=== PATIENT | female | born 1950 | race Caucasian/White ===

== ENCOUNTER → 2024-10-14 | Outpatient (CLI) | payer OTHER, SELFPAY ==
--- NOTE | 2024-10-13 11:30 | LES_PTH ---
PATIENT: DHARA SAPP LOC: [facility] U#:[id number] AGE/SX: 73/F ROOM: RE10/14/[address]: Dr. Braulio Suero MD : 1950 BED: DIS: 10/14/2024 SPEC #: [id number] RECD: 10/13/24 17:00 STATUS: MARZENA CRYSTAL #: [id number] MAXX: 10/13/24 11:[address]: Braulio Suero DEPT: SURGICAL PATHOLOGY RECD BY: Gopi Ramsey ENTERED: 10/14/24 10:17 SP TYPE: Lesion OTHR DR: No Primary Care Phys Tissues: A - Skin of eyelid, NOS Procedures: Surgery Specimen Level IV HEADER OPERATION: Excision of multiple (3) skin tags PRE-OP DIAGNOSIS: Left lower, upper lids TISSUE SUBMITTED: A- Left upper, lower lid MICROSCOPIC DIAGNOSIS A. Skin, eyelid, left, upper and lower, excision: - Pedunculated seborrheic keratosis (3 fragments). MICROSCOPIC DESCRIPTION Slides are reviewed. GROSS DESCRIPTION A. Received in formalin labeled with the patient's name and date of are 3 finney skin fragments, 0.3 x 0.2 x 0.1 cm to 0.5 x 0.3 x 0.2 cm. The largest fragment has an identifiable resection margin that is inked green; that fragment is bisected. Entirely submitted in 1 cassette. [place] 10/14/2024 CPT:[id number]
== END | disposition home or self-care (01) ==
LOC: LABSPEC 10:11
PROVIDERS: Referring Provider Ophthalmology; Visit Provider Ophthalmology
DX: L82.1 Other seborrheic keratosis (principal)
CPT/HCPCS: 88305